=== PATIENT | male | born 1980 | race Caucasian/White ===

== ENCOUNTER 2017-02-03 09:56 | Emergency (ER) | payer MEDICAID ==
[~2017-02-03] VITALS: Ht 177.8 cm; Wt 103.0 kg
[2017-02-03 10:00] VITALS: Ht 177.8 cm; Wt 103.0 kg
[2017-02-03] MEDS ORDERED: FAMOTIDINE 20 MG TAB PO STA (10:45)
[2017-02-03] MEDS ORDERED: ACETAMINOPHEN 325 MG TAB PO ONE (11:00)
[2017-02-03 11:05] LABS: ADD SCAN DIFF NO
[2017-02-03 11:13] LABS: BASOPHILS % 0.5 % (0.0-2.0); EOSINOPHILS # 0.4 10^3/ul (0.0-0.5); EOSINOPHILS % 4.4 % (0.0-7.0); HEMATOCRIT 44.7 % (42.0-52.0); HEMOGLOBIN 14.8 g/dl (14.0-18.0); LYMPHOCYTES # 2.4 10^3/ul (0.8-2.9); LYMPHOCYTES % 29.8 % (15.0-51.0); MEAN CORPUSCULAR HEMOGLOBIN 26.8 pg (29.0-33.0); MEAN CORPUSCULAR HGB CONC 33.1 g/dl (32.0-37.0); MEAN PLATELET VOLUME 8.4 fl (7.4-10.4); MONOCYTE # 0.5 10^3/ul (0.3-0.9); MONOCYTES % 6.6 % (0.0-11.0); NEUTROPHIL # 4.8 10^3/ul (1.6-7.5); NEUTROPHILS % 58.6 % (39.0-77.0); PLATELET COUNT 325 10^3/UL (140-415); RED BLOOD COUNT 5.52 10^6/ul (4.70-6.10); RED CELL DISTRIBUTION WIDTH 12.2 % (11.5-14.5); WHITE BLOOD COUNT 8.2 10^3/ul (4.8-10.8)
--- NOTE | 2017-02-03 11:32 | RADRPT ---
PROCEDURE: US Abdomen. CLINICAL INDICATION: Right upper quadrant Abdominal pain. TECHNIQUE: Multiple real-time images were acquired of the patient's abdomen and retroperitoneum ut ilizing a high resolution transducer. COMPARISON: None FINDINGS: The liver demonstrates normal echogenicity and size and no focal lesions are seen. The liver measure s 15.7 cm. A large calcified gallstone is present in the gallbladder neck measuring 2.1 cm. There is no perich olecystic fluid or gallbladder wall thickening. No intra or extrahepatic biliary dilatation is seen. The common bile duct measures 4.4 mm in maximal dimension. The pancreas is not seen secondary to overlying bowel gas. The right kidney is unremarkable measuring 10.5 cm. No collecting system dilatation, stone or solid mass. IMPRESSION: Cholelithiasis without biliary ductal dilatation or gallbladder wall thickening. RPTAT: PP .Elizabeth Jara MD, MD Date Time Electronically viewed and signed by .Elizabeth Jara MD, MD on 02/03/2017 11:32 .M/
[2017-02-03 11:35] LABS: ADD UMIC NO; URINE BILIRUBIN (Dip) NEGATIVE (NEGATIVE); URINE BLOOD (Dip) NEGATIVE (NEGATIVE); URINE COLOR LT. YELLOW (YELLOW); URINE GLUCOSE (Dip) NEGATIVE (NEGATIVE); URINE KETONES (Dip) NEGATIVE (NEGATIVE); URINE LEUKOCYTE ESTERASE (Dip) NEGATIVE (NEGATIVE); URINE NITRITE (Dip) NEGATIVE (NEGATIVE); URINE TOTAL PROTEIN (Dip) NEGATIVE (NEGATIVE); URINE UROBILINOGEN (Dip) 0.2 E.U./dL (0.1-1.0)
[2017-02-03 11:47] LABS: ALBUMIN 4.3 g/dl (3.3-4.9)
[2017-02-03 11:48] LABS: POTASSIUM 4.1 mmol/L (3.5-5.1)
[2017-02-03 11:49] LABS: CREATININE 0.61 mg/dl (0.61-1.24)
[2017-02-03 11:50] LABS: ALBUMIN/GLOBULIN RATIO 1.02; BILIRUBIN,INDIRECT 0.1 mg/dl (0-1.1); BILIRUBIN,TOTAL 0.1 mg/dl (0.2-1.3); TOTAL PROTEIN 8.5 g/dl (6.1-8.1)
[2017-02-03 11:51] LABS: CALCIUM 9.7 mg/dl (8.4-10.2)
--- NOTE | 2017-02-03 11:52 | RADRPT ---
PROCEDURE: XR Chest. CLINICAL INDICATION: Abdominal pain TECHNIQUE: AP view of the chest was performed. COMPARISON: None. FINDINGS: The lungs are clear. The lung volumes are normal. The heart size is normal. The osseous structure s are intact. IMPRESSION: Negative examination. RPTAT: QQ .Elizabeth Jara MD, Date Time Electronically viewed and signed by .Elizabeth Jara MD, on 02/03/2017 11:52 .M/
[2017-02-03] MEDS ORDERED: TRAM50TA2 PO (12:03)
--- NOTE | 2017-02-03 12:05 | ERA ---
ER Documentation Chief Complaint Date/Time DATE: 02/03/17 TIME: 12:03 Chief Complaint RT UPPER ABD PAIN X 2 WEEKS HPI This 36-year-old male presents with intermittent abdominal pain for last 2 weeks. He describes as being in the right upper quadrant site in the epigastric area. Denies any nausea vomiting, fevers or lower abdominal pain. He has not been seen for this before. He denies any relation to food but complains of pain with inspiration. ROS All systems reviewed and are negative except as per history of present illness. Medications Home Meds Active Scripts Tramadol HCl (Tramadol HCl) 50 Mg Tablet, 50 MG PO Q4 Y for PAIN, #20 TAB Prov:ROBIN ROB MD 02/03/17 PMhx/Soc Medical and Surgical Hx: pt denies Medical Hx, pt denies Surgical Hx Physical Exam Vitals Vital Signs Date Time Temp Pulse Resp B/P Pulse Ox O2 Delivery O2 Flow Rate FiO2 02/03/17 10:00 98.1 89 18 138/76 99 Physical Exam Const: [] Head: Atraumatic Eyes: Normal Conjunctiva ENT: Normal External Ears, Nose and Mouth. Neck: Full range of motion..~ No meningismus. Resp: Clear to auscultation bilaterally Cardio: Regular rate and rhythm, no murmurs Abd: Soft, non tender, non distended. Normal bowel sounds Skin: No petechiae or rashes Back: No midline or flank tenderness Ext: No cyanosis, or edema Neur: Awake and alert Psych: Normal Mood and Affect Result Diagram: 02/03/17 1055 02/03/17 1055 Results 24 hrs Laboratory Tests Test 02/03/17 10:55 Alanine Aminotransferase (ALT/SGPT) 38IU/L Albumin 4.3g/dl Albumin/Globulin Ratio 1.02 Alkaline Phosphatase 176IU/L Anion Gap 17 Aspartate Amino Transf (AST/SGOT) 29IU/L Basophils # 0.010^3/ul Basophils % 0.5% Blood Urea Nitrogen 14mg/dl Calcium Level 9.7mg/dl Carbon Dioxide Level 30mmol/L Chloride Level 100mmol/L Creatinine 0.61mg/dl Direct Bilirubin 0.00mg/dl Eosinophils # 0.410^3/ul Eosinophils % 4.4% Globulin 4.20g/dl Glucose Level 94mg/dl Hematocrit 44.7% Hemoglobin 14.8g/dl Indirect Bilirubin 0.1mg/dl Lipase 25U/L Lymphocytes # 2.410^3/ul Lymphocytes % 29.8% Mean Corpuscular Hemoglobin 26.8pg Mean Corpuscular Hemoglobin Concent 33.1g/dl Mean Corpuscular Volume 81.0fl Mean Platelet Volume 8.4fl Monocytes # 0.510^3/ul Monocytes % 6.6% Neutrophils # 4.810^3/ul Neutrophils % 58.6% Nucleated Red Blood Cells # 0.010^3/ul Nucleated Red Blood Cells % 0.0/100WBC Platelet Count 77091^3/UL Potassium Level 4.1mmol/L Red Blood Count 5.5210^6/ul Red Cell Distribution Width 12.2% Sodium Level 143mmol/L Total Bilirubin 0.1mg/dl Total Protein 8.5g/dl Urine Bilirubin NEGATIVE Urine Clarity CLEAR Urine Color LT. YELLOW Urine Glucose NEGATIVE% Urine Hemoglobin NEGATIVE Urine Ketones NEGATIVE Urine Leukocyte Esterase NEGATIVE Urine Nitrite NEGATIVE Urine Specific [place] 1.010 Urine Total Protein NEGATIVE Urine Urobilinogen 0.2 E.U./dL Urine pH 7.0 White Blood Count 8.210^3/ul Current Medications Medications (Trade) Dose Ordered Sig/Jameson Route PRN Reason Start Time Stop Time Status Last Admin Dose Admin Famotidine (Pepcid) 20 mg ONCE STAT PO 02/03/17 10:45 02/03/17 10:47 DC 02/03/17 11:01 Acetaminophen (Tylenol Tab) 650 mg ONCE ONCE PO 02/03/17 11:00 02/03/17 11:01 DC 02/03/17 11:01 Procedures/MDM Patient presents with right upper quadrant abdominal pain. For the last 2 weeks. Chest X-ray 1V Interpreted by me: Soft Tissue: No acute abnormalities Bones: No acute abnormalities Mediastinum/Cardiac Silhouette/Lungs: [No acute abnormalities]. Impression- normal 1 view chest x-ray CBC and CMP and lipase are normal. Urine is negative. Right upper quadrant ultrasound shows gallstones without evidence of cholecystitis or biliary obstruction. Patient likely has biliary colic without acute abdomen, her surgical abdomen. He will be treated with tramadol and observation at home. Patient is referred to local general surgeons and follow-up with [facility]. He was advised to return for fever vomiting, worsening pain, new or worsening symptoms. Departure Diagnosis: Primary Impression: Gallstones Condition: Stable Patient Instructions: Biliary Colic With Gallstone (Confirmed) Referrals: JO ANN ALVARADO MD, KAMBIZ M.D. LOMIS, THOMAS MD [facility] () Usted se joiner hecho un examen mdico de control que le indica que no est en felix condicin que requiera tratamiento urgente en el Departamento de Emergencia. Un estudio ms profundo y el tratamiento de cabrera condicin pueden esperar sin ningn riesgo hasta que usted sea atendida/o en el consultorio de cabrera mdico o felix cl winter. Es responsabilidad suya arreglar felix ashley para el seguimiento del suzie. MANEJO DE CONDICIONES NO URGENTES EN EL FUTURO 1) Si usted tiene un mdico de atencin primaria: Usted debera llamar a cabrera mdico de atencin primaria antes de venir al departamento de emergencia. Despus de las horas de consultorio, cabrera doctor o cabrera asociado/a est disponible por telfono. El mdico o enfermero de brittany en el servicio telefnico puede asesorarle por matias medio para atender el problema, o suzie contrario se puede programar felix ashley. 2) Si usted no tiene un mdico de atencin primaria: Llame al mdico o clnica de referencia que aparece abajo bryon las horas de consultorio para hacer felix ashley para que le vean. CLINICAS: [facility] [phone] [facility] [phone] [address] [facility] [phone] [address] [facility] [phone] [address] [facility] [phone] [address] [facility]. [phone] [address] Additional Instructions: darcy osborne. tratamiento es ashley con cirujano. Va al cabrera doctor/ specialista para mas evaluacon en el proximo semana. posiblemente necesita autorizado de cabrera doctor primario para specialista. Regresa para fiebre, o mas o nueva simptomas. ROBIN ROB MD Feb 03, 2017 12:04
[2017-02-03 12:18] VITALS: BP 135/72; PULSE 75; RESP 18; TEMP 98.1
== END 2017-02-03 12:20 | disposition home or self-care (01) ==
LOC: FTE 09:56
DX: K80.20 Calculus of gallbladder without cholecystitis without obstruction (principal)
CPT/HCPCS: 36415; 71010; 76705; 80053; 81003; 83690; 85025; Z7502; Z7610